=== PATIENT | male | born 1975 | race Caucasian/White ===

== ENCOUNTER 2019-06-28 08:54 | Emergency (ER) | payer BC, SELFPAY ==
[2019-06-28 09:05] VITALS: BP 138/88; PULSE 69; RESP 16; TEMP 36.1; O2SAT 98
--- NOTE | 2019-06-28 09:07 | ED.EXTPRO ---
HPI - Extremity Problem General Chief complaint: Extremity Problem,Nontraumatic Stated complaint: swollen left leg Time Seen by Provider: 06/28/19 09:07 Source: patient Mode of arrival: ambulatory Limitations: no limitations History of Present Illness HPI Narrative: Israel Preston is a 44 yo male with a PMH of DVT, leg edema, who comes to express care complaining of leg cramping and increasing edema in LL leg. Started on Monday. Not improved. Pt is a 2PPD smoker with hx of DVT, stopped eliquis.taking 325 mg ASA/day- on own- has been taking muscle relaxant and ibuprofen for apin Related Data Home Medications Medication Instructions Recorded Confirmed ibuprofen 800 mg TID PRN 06/28/19 06/28/19 methocarbamol 750 mg TID PRN 06/28/19 06/28/19 Allergies Allergy/AdvReac Type Severity Reaction Status Date / Time No Known Allergies Allergy Verified 06/28/19 09:03 Review of Systems Review of Systems: Narrative: CONSTITUTIONAL: Denies fever, chills, sweats. EYES: Denies visual changes, redness, discharge. ENT: Denies rhinorrhea, congestion, sore throat, otalgia. CARDIOVASCULAR: Denies chest pain, palpitations, edema. RESPIRATORY: Denies dyspnea, wheezing, cough GASTROINTESTINAL: Denies abdominal pain, nausea, vomiting, diarrhea. GENITOURINARY: Denies dysuria, hematuria, abnormal discharge SKIN: Denies rash or itching. NEUROLOGIC: Denies numbness, or focal weakness. PSYCHIATRIC: Denies anxiety or depression. Extremities: Swelling of left lower leg with pain PMFSH Past Medical History Medical History DVT (deep venous thrombosis) LLE Sciatica Seasonal allergies Surgical History Surgical History H/O vasectomy History of bilateral carpal tunnel release Social History Social History Smoking packs per day: 2 Smoking cigarettes per day: 40.0 Years smoked: 28 Smoking pack-years: 56.00 Smoking status: Current every day smoker Gender identity (if verbalized by the patient): Male Comments At time of signature, I agree with nursing past medical, surgical, social and family history. There is no relevant family history pertinent to the presenting complaint. Exam Narrative: Exam Narrative: GENERAL: This is a well-nourished, well-developed patient, in mild distress. HEAD: normocephalic, atraumatic. EYES: Sclera clear/white. Vision is grossly intact. EARS: External ears normal, Hearing grossly intact. NOSE: External nose normal without nasal discharge, nares without redness, no rhinorrhea. THROAT: Mucous membranes NECK: Neck supple, CARDIOVASCULAR: Regular rate and rhythm without murmurs, gallops, or rubs. RESPIRATORY:Coarse to auscultation. Breath sounds equal bilaterally. No wheezes, rales, or rhonchi. GASTROINTESTINAL: Abdomen soft, non-tender, SKIN: warm, intact with no suspicious lesions or rash, good texture and turgor. NEURO: awake, alert, and oriented to person, place and time. There were no obvious focal neurologic abnormalities. Steady gait EXTREMITIES: Normal range of motion. LL leg edema, 3 cm > L than R, reddened, no tenderness, feels tight BACK: Nontender without deformity Course Course Emergency Course: Discussed going to [place] [facility] for venous Doppler and further evaluation Vital Signs Vital signs: Vital Signs Temperature 97.0 F L 06/28/19 09:05 Pulse Rate 69 06/28/19 09:05 Respiratory Rate 16 06/28/19 09:05 Blood Pressure 138/88 06/28/19 09:05 Pulse Oximetry 98 06/28/19 09:05 Temperature 97.0 F L 06/28/19 09:05 Pulse Rate 69 06/28/19 09:05 Respiratory Rate 16 06/28/19 09:05 Blood Pressure 138/88 06/28/19 09:05 Pulse Oximetry 98 06/28/19 09:05 MDM - Extremity (Nontraumatic) MDM Narrative Medical decision making narrative: DVT versus cellulitis versus abscess Discharge Plan Discha
== END 2019-06-28 09:40 | disposition short-term general hospital (02) ==
PROVIDERS: Emergency Provider Nurse Practitioner
DX: R60.9 Edema, unspecified (principal); Z86.718 Personal history of other venous thrombosis and embolism; F17.210 Nicotine dependence, cigarettes, uncomplicated
CPT/HCPCS: 99212; G0463

== ENCOUNTER 2019-06-28 09:55 | Emergency (ER) | payer BC, SELFPAY ==
--- NOTE | ~2019-06-28 | US_ITS ---
EXAMINATION: US venous doppler [facility] DATE: 06/28/2019 11:14 INDICATION: Left lower limb edema. TECHNIQUE: Grayscale ultrasound images without and with compression and Doppler ultrasound images of the left lower extremity veins were obtained. COMPARISON: None. FINDINGS: The visualized portions of left common femoral vein, profunda (deep) femoral vein, femoral vein, and greater saphenous vein outflow are patent. There is thrombus in left popliteal, posterior tibial, per haile, and gastrocnemius veins. IMPRESSION: 1. Acute deep vein thrombosis involving left popliteal, posterior tibial, peroneal, and gastrocnemiu s veins. I called this result to Dr. Melo on 06/28/19 at 11:18 AM. Reviewed, dictated and finalized at location A. IMPRESSION: 1. Acute deep vein thrombosis involving left popliteal, posterior tibial, taryn fidel, and gastrocnemius veins. I called this result to Dr. Melo on 06/28/19 a t 11:18 AM.
[2019-06-28 10:03] VITALS: BP 157/98; PULSE 69; RESP 14; TEMP 36.7; O2SAT 100
--- NOTE | 2019-06-28 10:30 | ED.EXTPRO ---
HPI - Extremity Problem General Chief complaint: Extremity Problem,Nontraumatic Stated complaint: leg edema, r/o dvt per doctor Time Seen by Provider: 06/28/19 10:14 Source: patient Mode of arrival: ambulatory Limitations: no limitations History of Present Illness HPI Narrative: Patient is a 44-year-old male who presents for evaluation of left lower extremity pain and swelling. Patient was referred to us via an urgent care facility where he was seen for possible DVT. Patient with a history of left lower extremity DVT in 2016. Patient states he was taking Xarelto for approximately 6 months and then was able to discontinue this. 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 He noticed some calf pain and swelling that has been increasing over the past week. Patient noticed that he does not especially have any pain with movement. No recent falls or injuries. No fever or chills. No sores over the left lower extremity. Related Data Home Medications Medication Instructions Recorded Confirmed ibuprofen 800 mg TID PRN 06/28/19 06/28/19 methocarbamol 750 mg TID PRN 06/28/19 06/28/19 Allergies Allergy/AdvReac Type Severity Reaction Status Date / Time No Known Allergies Allergy Verified 06/28/19 09:03 Review of Systems Review of Systems: Narrative: CONSTITUTIONAL: Denies fever CARDIOVASCULAR: Denies chest pain RESPIRATORY: Denies cough or dyspnea. GASTROINTESTINAL: Denies abdominal pain SKIN: Denies rash MUSCULOSKELETAL: Denies back pain Extremities: Reports left leg swelling and edema NEUROLOGIC: Denies headache PMFSH Past Medical History Medical History DVT (deep venous thrombosis) LLE Sciatica Seasonal allergies Surgical History Surgical History H/O vasectomy History of bilateral carpal tunnel release Social History Social History Smoking packs per day: 2 Smoking cigarettes per day: 40.0 Years smoked: 28 Smoking pack-years: 56.00 Smoking status: Current every day smoker Gender identity (if verbalized by the patient): Male Exam Narrative: Exam Narrative: GENERAL: Awake, alert, conversant HEAD: Normocephalic, atraumatic. EYES: PERRLA and EOMI. ENT: Nares clear, no rhinorrhea or epistaxis. Mucous membranes moist. NECK: Supple. CHEST: No respiratory distress, breathing even and non labored HEART: Regular rate, sinus rhythm ABDOMEN:Non distended, non tender EXTREMITIES: Normal range of motion. Left lower extremity edema to the knee, nonpitting, mild tenderness, compartment is somewhat firm. Mild calf tenderness to palpation. No open wounds. No petechiae. Warmth present. SKIN: Warm, dry, no rash. NEURO:No focal deficits. Alert and oriented x3 Course Vital Signs Vital signs: Vital Signs Temperature 36.7 C 06/28/19 10:03 Pulse Rate 69 06/28/19 10:03 Respiratory Rate 14 06/28/19 10:03 Blood Pressure 157/98 H 06/28/19 10:03 Pulse Oximetry 100 06/28/19 10:03 Temperature 36.7 C 06/28/19 10:03 Pulse Rate 68 06/28/19 12:19 Respiratory Rate 18 06/28/19 12:19 Blood Pressure 140/88 06/28/19 12:19 Pulse Oximetry 100 06/28/19 12:19 MDM - Extremity (Nontraumatic) MDM Narrative Medical decision making narrative: Patient presented for evaluation of left lower extremity edema, history of DVT. At the time of initial assessment, ABCs are intact and vital signs are stable. Physical exam is notable for left lower extremity edema, mild tenderness, no signs of cellulitis. Imaging shows acute DVT of left popliteal, posterior tibial, peroneal gastrinomas veins. No femoral involvement. Spoke with Dr. Stokes, who recommends outpatient follow-up, we will restart the patient on Xarelto and he will have a recheck in 2 to 3 days with ultrasound to se
[2019-06-28 11:03] LABS: Basophils Absolute Auto 0.1 K/mm3 (0.0-0.1); Basophils Percent Auto 0.7 % (0.2-1.2); Eosinophils Absolute Auto 0.3 K/mm3 (0-0.3); Eosinophils Percent Auto 2.5 % (0-4.4); Hematocrit 51.8 % (42.0-52.0); Hemoglobin 17.8 g/dL (14.0-18.0); Immature Granulocyte Absolute 0.04 K/mm3 (0.00-0.031); Immature Granulocyte Percent A 0.3 % (0-0.5); Lymphocytes Absolute Auto 2.81 K/mm3 (0.9-3.2); Lymphocytes Percent Auto 22.3 % (18.3-44.2); Mean Corpuscular HGB Conc 34.4 g/dl (32-36); Mean Corpuscular Hemoglobin 29.6 pg (26-34); Monocytes Absolute Auto 1.2 K/mm3 (0.1-0.6); Monocytes Percent Auto 9.4 % (2.6-8.5); Neutrophils Absolute Auto 8.2 K/mm3 (1.3-6.7); Neutrophils Percent Auto 64.8 % (45.5-73.1); Platelet Count Result 236 k/mm3 (150-375); Red Blood Count 6.02 M/mm3 (4.6-6.20); Red Cell Distribution Width 14.2 % (11.5-14.5); White Blood Count 12.6 K/mm3 (4.5-10.0)
[2019-06-28 11:13] LABS: Prothrombin Time 12.8 Seconds (11.1-14.7)
[2019-06-28 11:14] LABS: Partial Thromboplastin Time 25.8 SECONDS (22.3-36.8)
[2019-06-28 12:10] LABS: Blood Urea Nitrogen 18 mg/dL (9-20); Calcium 8.2 mg/dL (8.4-10.2); Carbon Dioxide 24 mmol/L (22-30); Chloride 104 mmol/L (98-107); Estimated CRCL calculation 173 ml/min; Estimated Glomerular Filt Rate > 60; Glucose 91 mg/dL (75-110); Potassium 4.4 mmol/L (3.4-5.0); Sodium 136 mmol/L (137-145)
[2019-06-28 12:19] VITALS: BP 140/88; PULSE 68; RESP 18; O2SAT 100
== END 2019-06-28 12:20 | disposition home or self-care (01) ==
PROVIDERS: Emergency Provider Emergency Medicine
DX: I82.432 Acute embolism and thrombosis of left popliteal vein (principal); I82.442 Acute embolism and thrombosis of left tibial vein; I82.452 Acute embolism and thrombosis of left peroneal vein; I82.462 Acute embolism and thrombosis of left calf muscular vein; F17.210 Nicotine dependence, cigarettes, uncomplicated
CPT/HCPCS: 36415; 80048; 85025; 85610; 85730; 93971; 99284